=== PATIENT | male | born 1975 | race Caucasian/White ===

== ENCOUNTER 2016-11-04 21:40 | Emergency (ER) | payer SELFPAY ==
[~2016-11-04] VITALS: Ht 180.3 cm; Wt 136.4 kg
[~2016-11-04 21:40] MED LIST: ALLEGRA-D TABLE1 TAB PO; ANTIVERT 25MG25 MG PO; ASPIRIN 32325 MG/TA1 PO; AVELOX400 MG PO; CEFTIN500 MG PO; CEPHALEXIN500 M1 PO; CHLORESTEROL MED; CIPRO 500MG TA500 MG PO; COUMADIN 1MG1 MG/TAB PO; COUMADIN 5MG5 MG/TAB PO; DILAUDID4 MG PO; DOCUSATE SODIU100 MG PO; FLEXERIL 1010 MG/TAB PO; FLEXERIL10 MG PO; HCTZ12.5TAB PO; INDOMETHACIN50 MG PO; LEVAQUIN 5500 MG/TA1 PO; LORTAB 5/500 501 TAB PO; LORTAB 7.5/5001 TAB; LORTAB 7.5/5001 TAB PO; LOVENOX100 MG/ML SC; LOVENOX120 MG/0.8 SC; LYRICA PO; MAGIC MOUTH PO; MEDROL 4MG DOSPA4 MG PO; METHYLPREDNISOLONE; MINOCYCLIN100 MG/CAP PO; MORPHINE 1515 MG/TAB PO; MORPHINE SULFAT15 M2 PO; NAPROSYN PO; NO HOME MEDICATIONS; NORCO 325 MG-51 TAB PO; NORCO 325 MG-7.1 TAB PO; PEPCID 20MG TAB20 MG PO; PERCOCET 325 MG1 TA2 PO; PERCOCET 5/321 UDTAB PO; PHENERGAN 25 TA25 MG PO; PREDNISONE10 MG PO; PREDNISONE20 M1 PO; SENNA-GEN8.6 MG PO; SEROQUEL50 MG PO; SKELAXIN400 MG PO; SKELAXIN800 MG PO; ULTRAM 50MG TAB50 MG PO; VICODIN 5/5001 UDTAB PO; WARFARIN SODIUM2 MG PO; ZITHROMAX Z PA250 MG PO
[2016-11-04 22:18] LABS: BASO # 0.1 (0.0-0.2); BASO % 0.8 % (0.0-2.0); EOS # 0.2 (0.0-0.7); EOS % 3.1 % (0-4.0); GRAN # 4.2 (1.4-6.5); GRAN % 55.5 % (42.2-75.2); HEMATOCRIT 40.7 % (42.0-52.0); HEMOGLOBIN 14.1 g/dl (13.5-18.0); LYMPH # 2.4 (1.2-3.4); MEAN CELL VOLUME 94 fl (80.0-100.0); MEAN CORPUSCULAR HEMOGLOBIN 33 pg (27.0-31.0); MEAN CORPUSCULAR HGB CONC 35 g/dl (33.0-37.0); MEAN PLATELET VOLUME 9.4 fl (7.4-10.4); MONO # 0.7 (0.1-0.6); MONO % 9.1 % (1.7-9.3); PLATELET COUNT 202 K/mm3 (130-400); RED BLOOD COUNT 4.34 M/mm3 (4.20-5.60); REDCELL DISTRIBUTION WIDTH-CV 11.9 % (11.5-14.5); WHITE BLOOD COUNT 7.6 K/mm3 (4.8-10.8)
[2016-11-04 22:29] LABS: C-REACTIVE PROTEIN < 0.5 mg/dL (0.0-0.9)
[2016-11-04 22:34] LABS: ANION GAP 12 mmol/L (7-16); BLOOD UREA NITROGEN 15 mg/dL (9-20); CALCIUM 8.9 mg/dL (8.4-10.2); CARBON DIOXIDE 26 mmol/L (22-30); CHLORIDE 99 mmol/L (98-107); CREATININE, serum 0.96 mg/dL (0.66-1.25); GLUCOSE 197 mg/dL (74-106); POTASSIUM 3.9 mmol/L (3.4-5.0); SODIUM 137 mmol/L (137-145)
[2016-11-04 22:36] LABS: ERYTHROCYTE SEDIMENTATION RATE 5 mm/hr (0-15)
[2016-11-04] MEDS ORDERED: DOXYCYCLINE 10100 MG PO (22:58)
[2016-11-04 23:22] VITALS: BP 135/75; PULSE 89
== END 2016-11-04 23:13 | disposition home or self-care (01) ==
LOC: COL.ER 21:40
PROVIDERS: Physician Assistant
DX: L03.116 Cellulitis of left lower limb (principal); Z86.718 Personal history of other venous thrombosis and embolism

== ENCOUNTER 2017-08-26 20:50 | Emergency (ER) | payer SELFPAY ==
[~2017-08-26] VITALS: Ht 182.9 cm; Wt 147.7 kg
[~2017-08-26 20:50] MED LIST changes: +DOXYCYCLINE 10100 MG PO
[2017-08-26 20:54] VITALS: BP 148/77; TEMP 98
[2017-08-26 22:19] LABS: BASO # 0.1 (0.0-0.2); BASO % 0.6 % (0.0-2.0); EOS # 0.3 (0.0-0.7); GRAN # 4.6 (1.4-6.5); GRAN % 52.7 % (42.2-75.2); HEMOGLOBIN 14.9 g/dl (13.5-18.0); LYMPH % 34.4 % (20.0-51.0); MEAN CELL VOLUME 95 fl (80.0-100.0); MEAN CORPUSCULAR HEMOGLOBIN 32 pg (27.0-31.0); MEAN CORPUSCULAR HGB CONC 34 g/dl (33.0-37.0); MEAN PLATELET VOLUME 9.4 fl (7.4-10.4); MONO # 0.8 (0.1-0.6); MONO % 9.2 % (1.7-9.3); PLATELET COUNT 202 K/mm3 (130-400); RED BLOOD COUNT 4.61 M/mm3 (4.20-5.60); REDCELL DISTRIBUTION WIDTH-CV 11.9 % (11.5-14.5)
[2017-08-26 22:39] LABS: ERYTHROCYTE SEDIMENTATION RATE 9 mm/hr (0-15)
[2017-08-26 23:25] VITALS: PULSE 80
== END 2017-08-26 23:26 | disposition home or self-care (01) ==
LOC: COL.ER 20:50
PROVIDERS: Emergency Medicine
DX: M79.662 Pain in left lower leg (principal); E66.9 Obesity, unspecified; Z86.718 Personal history of other venous thrombosis and embolism; Z90.89 Acquired absence of other organs; Z68.41 Body mass index [BMI] 40.0-44.9, adult

== ENCOUNTER 2018-02-27 00:46 | Emergency (ER) | payer SELFPAY ==
[~2018-02-27] VITALS: Ht 180.3 cm; Wt 147.7 kg
[2018-02-27 01:00] VITALS: BP 144/75; TEMP 98.2
[2018-02-27] MEDS ORDERED: FLEXERIL 1010 MG/TAB PO (03:57)
[2018-02-27 04:26] VITALS: PULSE 67
== END 2018-02-27 04:26 | disposition home or self-care (01) ==
LOC: COL.ER 00:46
DX: S80.02XA Contusion of left knee, initial encounter (principal); S30.0XXA Contusion of lower back and pelvis, initial encounter; S80.211A Abrasion, right knee, initial encounter; S00.91XA Abrasion of unspecified part of head, initial encounter; E66.9 Obesity, unspecified; Z86.718 Personal history of other venous thrombosis and embolism; V89.2XXA Person injured in unspecified motor-vehicle accident, traffic, initial encounter

== ENCOUNTER 2018-04-07 02:48 | Emergency (ER) | payer MEDICAID ==
[~2018-04-07] VITALS: Ht 180.3 cm; Wt 136.4 kg
[2018-04-07 02:54] VITALS: TEMP 98.2
[2018-04-07] MEDS ORDERED: VOLTAREN 75 DR75 MG PO (04:08)
[2018-04-07 04:38] VITALS: BP 106/80; PULSE 90
== END 2018-04-07 04:40 | disposition home or self-care (01) ==
LOC: COL.ER 02:48
DX: M76.52 Patellar tendinitis, left knee (principal); Z90.89 Acquired absence of other organs; Z86.718 Personal history of other venous thrombosis and embolism

== ENCOUNTER 2018-04-16 00:21 | Emergency (ER) | payer MEDICAID ==
[~2018-04-16] VITALS: Ht 180.3 cm; Wt 147.7 kg
[~2018-04-16 00:21] MED LIST changes: +VOLTAREN 75 DR75 MG PO
[2018-04-16 00:24] VITALS: BP 161/73
[2018-04-16 01:51] LABS: BASO # 0.1 (0.0-0.2); BASO % 0.6 % (0.0-2.0); EOS # 0.2 (0.0-0.7); EOS % 2.3 % (0-4.0); GRAN # 5.6 (1.4-6.5); GRAN % 61.8 % (42.2-75.2); HEMATOCRIT 41.5 % (42.0-52.0); HEMOGLOBIN 14.1 g/dl (13.5-18.0); LYMPH # 2.4 (1.2-3.4); LYMPH % 26.3 % (20.0-51.0); MEAN CELL VOLUME 95 fl (80.0-100.0); MEAN CORPUSCULAR HEMOGLOBIN 32 pg (27.0-31.0); MEAN CORPUSCULAR HGB CONC 34 g/dl (33.0-37.0); MEAN PLATELET VOLUME 9.4 fl (7.4-10.4); MONO # 0.8 (0.1-0.6); MONO % 8.6 % (1.7-9.3); PLATELET COUNT 183 K/mm3 (130-400); RED BLOOD COUNT 4.35 M/mm3 (4.20-5.60); REDCELL DISTRIBUTION WIDTH-CV 11.8 % (11.5-14.5)
[2018-04-16 02:05] LABS: BILIRUBIN,TOTAL 0.6 mg/dL (0.0-1.0); C-REACTIVE PROTEIN 1.8 mg/dL (0.0-0.9); CALCIUM 8.6 mg/dL (8.4-10.2); TOTAL PROTEIN 7.3 gm/dL (6.4-8.2)
[2018-04-16 02:19] VITALS: PULSE 77; TEMP 99
[2018-04-16] MEDS ORDERED: FLEXERIL 1010 MG/TAB PO (03:19)
== END 2018-04-16 03:30 | disposition home or self-care (01) ==
LOC: COL.ER 00:21
PROVIDERS: Emergency Medicine
DX: M25.562 Pain in left knee (principal); M54.32 Sciatica, left side; Z86.718 Personal history of other venous thrombosis and embolism
CPT/HCPCS: J1170; J1885

== ENCOUNTER 2018-04-19 02:41 | Emergency (ER) | payer MEDICAID ==
[~2018-04-19] VITALS: Ht 180.3 cm; Wt 147.7 kg
[2018-04-19 02:45] VITALS: TEMP 98.9
[2018-04-19 04:28] VITALS: BP 125/82; PULSE 85
== END 2018-04-19 04:28 | disposition home or self-care (01) ==
LOC: COL.ER 02:41
DX: M70.42 Prepatellar bursitis, left knee (principal); E66.9 Obesity, unspecified; Z86.718 Personal history of other venous thrombosis and embolism; Z68.42 Body mass index [BMI] 45.0-49.9, adult
CPT/HCPCS: J1885

== ENCOUNTER 2018-07-29 22:29 | Emergency (ER) | payer MEDICAID, OTHER ==
[~2018-07-29] VITALS: Ht 180.3 cm; Wt 147.7 kg
[2018-07-29 22:43] VITALS: BP 199/89; PULSE 88; TEMP 97.1
[2018-07-30] MEDS ORDERED: PREDNISONE20 MG PO (23:26)
== END 2018-07-29 23:51 | disposition left against medical advice (07) ==
LOC: COL.ER 22:29
DX: M54.9 Dorsalgia, unspecified (principal)

== ENCOUNTER 2018-07-30 16:44 | Emergency (ER) | payer OTHER, MEDICAID ==
[~2018-07-30] VITALS: Ht 180.3 cm; Wt 147.7 kg
[2018-07-30 18:59] LABS: BASO # 0.1 (0.0-0.2); BASO % 0.7 % (0.0-2.0); EOS # 0.2 (0.0-0.7); EOS % 2.7 % (0-4.0); GRAN # 4.2 (1.4-6.5); GRAN % 54.8 % (42.2-75.2); HEMATOCRIT 47.8 % (42.0-52.0); HEMOGLOBIN 16.5 g/dl (13.5-18.0); LYMPH # 2.4 (1.2-3.4); LYMPH % 31.8 % (20.0-51.0); MEAN CELL VOLUME 94 fl (80.0-100.0); MEAN CORPUSCULAR HEMOGLOBIN 32 pg (27.0-31.0); MEAN CORPUSCULAR HGB CONC 35 g/dl (33.0-37.0); MEAN PLATELET VOLUME 9.5 fl (7.4-10.4); MONO # 0.7 (0.1-0.6); MONO % 9.7 % (1.7-9.3); PLATELET COUNT 210 K/mm3 (130-400); RED BLOOD COUNT 5.09 M/mm3 (4.20-5.60); REDCELL DISTRIBUTION WIDTH-CV 11.8 % (11.5-14.5)
[2018-07-30 19:15] LABS: ALANINE AMINOTRANSFERASE 63 U/L (21-72); ALBUMIN 4.4 gm/dL (3.5-5.0); ALKALINE PHOSPHATASE 57 U/L (50-136); ANION GAP 6 mmol/L (7-16); AST,SGOT 48 U/L (15-37); BILIRUBIN,TOTAL 0.6 mg/dL (0.0-1.0); BLOOD UREA NITROGEN 15 mg/dL (9-20); CALCIUM 9.9 mg/dL (8.4-10.2); CARBON DIOXIDE 31 mmol/L (22-30); CHLORIDE 103 mmol/L (98-107); CREATININE, serum 0.89 mg/dL (0.66-1.25); GLUCOSE 111 mg/dL (74-106); POTASSIUM 4.4 mmol/L (3.4-5.0); SODIUM 141 mmol/L (137-145); TOTAL PROTEIN 7.9 gm/dL (6.4-8.2)
[2018-07-30 19:19] LABS: ACETAMINOPHEN < 10 ug/mL (10-30); ALCOHOL(ethanol),MEDICAL < 10 mg/dL; SALICYLATE < 1.0 mg/dL
[2018-07-30 21:02] LABS: COLLECTION METHOD CLEAN CATCH
[2018-07-30 21:10] LABS: MUCOUS Present /lpf; PH 5 (5-8); SQUAMOUS EPITHELIAL 0-2 /hpf; URINE APPEARANCE Hazy; URINE BACTERIA None Seen /hpf; URINE BILIRUBIN Negative (NEGATIVE); URINE BLOOD Negative (NEGATIVE); URINE COLOR Yellow; URINE GLUCOSE Negative (NEGATIVE); URINE KETONE Negative (NEGATIVE); URINE LEUKOCYTE ESTERASE Negative (NEGATIVE); URINE NITRATE Negative (NEGATIVE); URINE PROTEIN(semi-quant) 1+ (NEGATIVE); URINE RBC 0-2 /hpf; URINE UROBILINOGEN Negative (NEGATIVE)
[2018-07-30 21:25] LABS: TRICYCLIC ANTIDEPRESS URINE NEGATIVE
[2018-07-30] MEDS ORDERED: PREDNISONE20 MG PO (23:26)
[2018-07-31 00:03] VITALS: BP 114/69; PULSE 95; TEMP 97.5
== END 2018-07-31 00:04 | disposition home or self-care (01) ==
LOC: COL.ER 16:44
PROVIDERS: Physician Assistant
DX: M54.5 Low back pain (principal); F32.9 Major depressive disorder, single episode, unspecified; F41.9 Anxiety disorder, unspecified; Z86.718 Personal history of other venous thrombosis and embolism
CPT/HCPCS: J1885; J2360